=== PATIENT | female | born 1950 | race Caucasian/White ===

== ENCOUNTER 2022-01-07 12:51 | Outpatient (CLI) | payer MEDICARE, BC, SELFPAY ==
--- NOTE | 2022-01-07 13:00 | CRLHL7_ITS ---
For Patients: As a result of the Century Cures Act, medical imaging exams and procedure reports are released immediately into your electronic medical record. You may view this report before your referring provider. If you have questions, please contact your health care provider. BILATERAL BREAST MRI WITHOUT AND WITH GADOLINIUM, 01/07/2022 CLINICAL HISTORY: Personal history LEFT breast excisional biopsy in 2017 due to nipple discharge. 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 Family history of breast cancer in her sister diagnosed in her 50s. INDICATION FOR BREAST MRI: Screening breast MRI in this high-risk woman. COMPARISON STUDIES: BILATERAL mammogram 05/28/2021, 05/03/2020, 05/02/2019. Breast MRI 12/06/2020. CONTRAST: 20 mL Dotarem. TECHNIQUE: The patient was positioned prone using a breast coil. Multiple imaging sequences were obtained using 1-1.5 mm thick slices with no gap. The image sequences include T2-weighted STIR in the axial plane, T1-weighted nonfat-saturated gradient echo in the axial plane, pre- and post-contrast T1-weighted FLASH 3D with fat suppression in the axial plane, and T1-weighted FLASH high-resolution 3D with fat suppression in the sagittal plane. Image post-processing was performed on a [employer] workstation. Complex 3D rendering including maximum intensity projections (MIPS) and volumetric renderings were obtained to optimize visualization of the extent of pathology and relationship to the nipple, skin, and chest wall. This aids in determining feasibility of breast conservation surgery. Subtraction, multiplanar reconstruction, mean curve determination, and angiogenesis mapping were also performed. The study was technically adequate. FINDINGS: Breast Density: Scattered fibroglandular tissue. Breast Background Enhancement: Mild. RIGHT Breast: No suspicious mass or enhancement. LEFT Breast: No suspicious mass or enhancement. Post surgical change in the retroareolar region. Lymph Nodes: No axillary lymphadenopathy. Other Findings: None. IMPRESSIONS AND RECOMMENDATIONS: No MR evidence of malignancy in either breast. Annual screening mammography is recommended. If clinically indicated, continued screening breast MRI may also be performed staggered at six-month intervals with the screening mammography. BI-RADS: BI-RADS Category 2: Benign Teena Cardenas M.D. Body/Breast Radiologist [email or web address] Transcribed: 12:43 p.mJacey GUTIERREZ/Dictated by: Teena Cardenas MD @ 01/13/2022 12:26:00 PM (Electronically Signed)
== END 2022-01-07 12:52 | disposition home or self-care (01) ==
PROVIDERS: Visit Provider Surgery
DX: N60.82 Other benign mammary dysplasias of left breast (principal); Z80.3 Family history of malignant neoplasm of breast
CPT/HCPCS: 77049; A9575

== ENCOUNTER 2024-10-11 10:03 | Outpatient (CLI) | payer MEDICARE, BC, SELFPAY | END 2024-10-11 10:04 | disposition home or self-care (01) | LOC: INJ CL 10:07 | PROVIDERS: Visit Provider Family Medicine | DX: M54.16 Radiculopathy, lumbar region (principal); M51.26 Other intervertebral disc displacement, lumbar region | CPT/HCPCS: 62323; J0702; Q9966 ==

== ENCOUNTER 2025-01-31 09:26 | Outpatient (CLI) | payer MEDICARE, BC, SELFPAY | END 2025-01-31 09:27 | disposition home or self-care (01) | LOC: INJ CL 09:27 | PROVIDERS: Visit Provider Family Medicine | DX: M54.16 Radiculopathy, lumbar region (principal); M51.369 Other intervertebral disc degeneration, lumbar region without mention of lumbar back pain or lower extremity pain | CPT/HCPCS: 62323; J0702; Q9966 ==